=== PATIENT | female | born 1940 | race Caucasian/White ===

== ENCOUNTER → 2016-12-08 | Outpatient (CLI) | payer MEDICARE ==
[~2016-12-08] MED LIST: ALBU1AER9 INH; CALC1TAB56 PO; CETI10TA10 PO; CHOL200027 PO; CLB200 PO; FAMO20TA9 PO; FLX10 PO; HYDR12.55 PO; LOSA50TA54 PO; LVNIS40 SQ; MEGA RED FISH OIL PO; MISCTAB78 PO; MONT1TAB5 PO; MULT-614 PO; OXYSR10 PO; POTA1TAB PO; PROB1TAB16 PO; SNK PO; magnesium with zinc PO
== END | disposition home or self-care (01) ==
LOC: C.LABBC 15:11
PROVIDERS: ATTEND Orthopaedic Surgery Orthopaedic Surgery of the Spine
DX: M25.559 Pain in unspecified hip (principal); M54.5 Low back pain

== ENCOUNTER → 2016-12-15 | Outpatient (CLI) | payer MEDICARE ==
--- NOTE | 2016-12-15 16:00 | DIAGNOSTIC IMAGING REPORT ---
THREE-PHASE NUCLEAR BONE SCAN OF THE HIPS AND PELVIS CLINICAL HISTORY: Right hip pain. COMPARISON STUDY: Radiographs of the right hip dated 12/08/2016. MRI of the right hip dated 07/13/2016. TECHNIQUE: Following the IV administration of 27.1 mCi of technetium 99m MDP, three-phase bone scan of the the hips and bony pelvis was performed. Flow and blood pool phase imaging was acquired in the anterior and posterior projections. Bone phase imaging of the hips and bony pelvis as well as the knees was performed at three hours in multiple obliquities. FINDINGS: There is no hyperemia identified involving the right hip on the flow images. Minimal hyperemia is suggested around the right hip on the blood pool phase imaging. A photopenic defect is consistent with right hip arthroplasty. There are also bilateral knee arthroplasties. There is increased tracer deposition identified around the femoral, and the right hip arthroplasty. No abnormal tracer deposition is seen around the left hip. Low level activity around the knee arthroplasties appear symmetric and is nonspecific. IMPRESSION: 1. There is faint hyperemia suggested around the right hip on the blood pool phase only as well as abnormal tracer deposition identified around the right acetabular cup. The appearance is nonspecific and favors aseptic loosening or less likely a stress reaction. Clinical correlation will be required. 2. No abnormal tracer deposition is seen around the left have. 3. Bilateral knee arthroplasties are noted. Electronically signed by: Humberto Lockwood M.D. 12/15/2016 3:33 PM Dictated Date/Time: 12/15/2016 3:28 PM
== END | disposition home or self-care (01) ==
LOC: C.NUCL 10:30
PROVIDERS: ATTEND Orthopaedic Surgery Orthopaedic Surgery of the Spine
DX: M25.551 Pain in right hip (principal)